=== PATIENT | male | born 1995 | race Caucasian/White ===

== ENCOUNTER 2020-07-16 09:22 | Emergency (ER) | payer OTHER ==
[~2020-07-16] VITALS: Ht 172.7 cm; Wt 92.7 kg
[2020-07-16 10:00] LABS: BASO # 0.1 10^3/uL (0.0-0.2); BASO % 0.5 % (0.0-1.0); EOS # 0.1 10^3/uL (0.0-0.5); EOS % 0.7 % (0.0-3.0); HEMATOCRIT 52.6 % (42.0-52.0); HEMOGLOBIN 18.1 g/dl (13.5-17.5); LYMPH # 2.3 10^3/uL (1.5-5.0); LYMPH % 16.5 % (24.0-44.0); MEAN CORPUSCULAR HEMOGLOBIN 29.1 pg (27.0-33.0); MEAN CORPUSCULAR HGB CONC 34.4 g/dl (32.0-36.5); MEAN CORPUSCULAR VOLUME 84.6 fl (80.0-96.0); MONO % 7.1 % (2.0-8.0); NEUTROPHILS # 10.4 10^3/uL (1.5-8.5); NEUTROPHILS % 73.6 % (36.0-66.0); PLATELET COUNT, AUTOMATED 345 10^3/uL (150-450); RED BLOOD COUNT 6.22 10^6/uL (4.30-6.10); WHITE BLOOD COUNT 14.1 10^3/uL (4.0-10.0)
--- NOTE | 2020-07-16 10:12 | REP ---
INDICATION: fall hit head COMPARISON: None. TECHNIQUE: Axial noncontrast images from the skull base to the vertex with coronal reformations. This CT examination was performed using the following dose reduction techniques: Automated exposure control, adjustment of mA and/or kv according to the patient's size, and use of iterative reconstruction technique. FINDINGS: The ventricles, sulci, and cisterns are normal in position and appearance. Caceres-white differentiation is maintained. No acute intracranial hemorrhage, mass/mass effect, pathology or trauma/injury. No evidence for acute infarction. No extra-axial fluid collection. Calvarium is intact. Paranasal sinuses and mastoid air cells are clear. IMPRESSION: Normal noncontrast head CT. No evidence for acute intracranial pathology or trauma/injury. <Electronically signed by Deyvi Castaneda > 07/16/20 [id number]
[2020-07-16 10:22] LABS: BLOOD UREA NITROGEN 14 MG/DL (7-18); CALCIUM LEVEL 9.8 MG/DL (8.5-10.1); CARBON DIOXIDE LEVEL 30 MEQ/L (21-32); CHLORIDE LEVEL 104 MEQ/L (98-107); CREATININE FOR GFR 1.34 MG/DL (0.70-1.30); GLOMERULAR FILTRATION RATE > 60.0 (>60); GLUCOSE, FASTING 90 MG/DL (70-100); POTASSIUM SERUM 4.9 MEQ/L (3.5-5.1); SODIUM LEVEL 137 MEQ/L (136-145)
--- NOTE | 2020-07-16 10:32 | REP ---
INDICATION: Syncope/near-syncope COMPARISON: None. TECHNIQUE: Portable AP view of the chest FINDINGS: The mediastinum and cardiac silhouette are within normal limits for portable technique. The lung delaney are clear without acute consolidation, effusion, or pneumothorax. Skeletal structures are intact. IMPRESSION: No acute cardiopulmonary process appreciated. <Electronically signed by Deyvi Castaneda > 07/16/20 [id number]
[2020-07-16] MEDS ORDERED: NS 1,000 ML IV ONE (10:40)
[2020-07-16 10:57] LABS: ALBUMIN 4.7 GM/DL (3.2-5.2); ALT/SGPT 86 U/L (12-78); BILIRUBIN,DIRECT 0.1 MG/DL (0.0-0.2); BILIRUBIN,TOTAL 0.5 MG/DL (0.2-1.0); CK-MB VALUE MASS 2.8 NG/ML (<3.6); CPK CREATINE PHOSPHOKINASE 288 U/L (39-308); ETHYL ALCOHOL (ETHANOL) < 0.003 % (0.000-0.010); MAGNESIUM LEVEL 2.9 MG/DL (1.8-2.4); MB/CK RELATIVE INDEX 0.97 (< OR =4); TROPONIN I < 0.02 NG/ML (< 0.10)
[2020-07-16 13:36] LABS: AMPHETAMINES LEVEL URINE NEGATIVE (NEGATIVE); BARBITURATES URINE NEGATIVE (NEGATIVE); BENZODIAZEPINES URINE NEGATIVE (NEGATIVE); CANNABINOIDS URINE NEGATIVE (NEGATIVE); COCAINE METABOLITE URINE NEGATIVE (NEGATIVE); METHADONE URINE NEGATIVE (NEGATIVE); OPIATES URINE NEGATIVE (NEGATIVE); PHENCYCLIDINE URINE NEGATIVE (NEGATIVE)
[2020-07-16 13:52] VITALS: BP 131/85
--- NOTE | 2020-07-17 07:32 | ECGEPIP ---
[facility] - ED Test Date: 2020-07-16 Pat Name: JOHN FREED Department: Room: - Gender: Male [employer]: : 1995 Requested By: DORINA Zamudio Order Number: [id number] Reading MD: Magdi Gamez Measurements Intervals [place] Rate: 102 P: 52 DE: 138 QRS: 40 QRSD: 88 T: 4 QT: 314 QTc: 409 Interpretive Statements Sinus tachycardia NONSPECIFIC T WAVE ABNORMALITY(S) NO PRIORS FOR COMPARISON Electronically Signed on 07-17-2020 7:31:34 EDT by Magdi Gamez
== END 2020-07-16 13:56 | disposition home or self-care (01) ==
LOC: EDBD 09:22 → M ED 09:22
DX: R55 Syncope and collapse (principal); Z87.891 Personal history of nicotine dependence